=== PATIENT | male | born 1985 | race Caucasian/White ===

== ENCOUNTER → 2016-04-04 | Outpatient (CLI) | payer OTHER ==
[~2016-04-04] MED LIST: FLOMAX 0.4MG C0.4 MG PO; NORCO 325 MG-51 TAB PO; PERCOCET 5/3251 EACH PO
--- NOTE | 2016-04-04 16:27 | RADIOLOGY REPORT PS360 ---
CT ABD PELVIS W/ CONTRAST CLINICAL INDICATION: Mid abdominal pain, possible hernia HERNIA, ABDOMEN PAIN COMPARISON: 11/28/2015 TECHNIQUE: Axial images obtained with sagittal and coronal reformats. PROCEDURE: Oral Contrast: Redicat IV Contrast: 75 mL is Isovue-370 . FINDINGS: No acute finding in the lung bases. The liver, gallbladder, pancreas, spleen, and adrenal glands have an unremarkable appearance. No renal calculi, hydronephrosis, or renal mass evident. Unremarkable 5 gas pattern. No intestinal obstruction or free air. Status post appendectomy. Unremarkable appearance of the pelvis. No abdominal wall hernia. There are few small lymph nodes in the inguinal regions and within the mesentery's. No acute bony anomalies. IMPRESSION: 1. No acute intra-abdominal or pelvic pathology. 2. Status post appendectomy. 3. No evidence of abdominal wall hernia
== END ==
LOC: RAD 10:22
DX: R10.9 Unspecified abdominal pain (principal)
CPT/HCPCS: Q9967